=== PATIENT | female | born 1965 | race Caucasian/White ===

== ENCOUNTER → 2017-04-10 | Outpatient (REF) | payer OTHER, SELFPAY ==
[~2017-04-10] MED LIST: ALDACTONE PO; FURO20TA PO; IBUP800T OR; KLOR-CON PO; LEVOTHYROXINE PO; VICO5TAB OR
[2017-04-10 20:54] LABS: ANION GAP 6 MEQ/L (8-16); BLOOD UREA NITROGEN 12 MG/DL (7-18); CALCIUM LEVEL 9.1 MG/DL (8.5-10.1); CARBON DIOXIDE LEVEL 29 MEQ/L (21-32); CHLORIDE LEVEL 102 MEQ/L (98-107); CREATININE FOR GFR 1.02 MG/DL (0.55-1.02); GLOMERULAR FILTRATION RATE > 60.0 (>51); GLUCOSE, FASTING 74 MG/DL (70-105); POTASSIUM SERUM 4.4 MEQ/L (3.5-5.1); SODIUM LEVEL 137 MEQ/L (136-145)
== END ==
LOC: M SFHCLERA 16:42
PROVIDERS: ATTEND Physician Assistant
DX: E87.6 Hypokalemia (principal); E89.0 Postprocedural hypothyroidism

== ENCOUNTER → 2019-02-11 | Outpatient (CLI) | payer OTHER ==
--- NOTE | 2019-02-11 19:47 | REP ---
Clinical: Cough and wheezing . Comparison: 05/01/2008 . Technique: PA and lateral. Findings: The mediastinum and cardiac silhouette are normal. The lung alcantara demonstrate chronic interstitial changes and evidence for COPD without acute consolidation, effusion, or pneumothorax. The skeletal structures are intact and normal. Impression: 1. No acute cardiopulmonary process. Electronically Signed by Cain Babin MD 02/11/2019 07:39 P
== END ==
LOC: M LRY 19:24
PROVIDERS: ATTEND Physician Assistant
DX: R05 Cough (principal); R06.2 Wheezing

== ENCOUNTER → 2019-02-12 | Outpatient (CLI) | payer OTHER ==
[2019-02-12 16:39] LABS: BASO # 0.1 10^3/uL (0.0-0.2); BASO % 1.1 % (0.0-1.0); EOS # 0.2 10^3/uL (0.0-0.50); EOS % 2.7 % (0.0-3.0); HEMATOCRIT 42.3 % (36.0-47.0); HEMOGLOBIN 14.6 g/dl (12.0-15.5); LYMPH # 1.9 10^3/uL (1.5-4.5); LYMPH % 23.9 % (24.0-44.0); MEAN CORPUSCULAR HEMOGLOBIN 29.4 pg (27.0-33.0); MEAN CORPUSCULAR HGB CONC 34.5 g/dl (32.0-36.5); MEAN CORPUSCULAR VOLUME 85.1 fl (80.0-96.0); MONO # 0.7 10^3/uL (0.0-0.8); PLATELET COUNT, AUTOMATED 312 10^3/uL (150-450); RED BLOOD COUNT 4.97 10^6/uL (4.00-5.40); WHITE BLOOD COUNT 7.9 10^3/uL (4.0-10.0)
[2019-02-12 16:56] LABS: ALBUMIN 4.1 GM/DL (3.2-5.2); ALT/SGPT 27 U/L (12-78); BILIRUBIN,TOTAL 0.6 MG/DL (0.2-1.0); BLOOD UREA NITROGEN 13 MG/DL (7-18); CALCIUM LEVEL 9.7 MG/DL (8.5-10.1); CARBON DIOXIDE LEVEL 32 MEQ/L (21-32); CHLORIDE LEVEL 94 MEQ/L (98-107); CHOLESTEROL LEVEL 244 MG/DL (<200); CHOLESTEROL RISK RATIO 2.804 (<5); CREATININE FOR GFR 0.77 MG/DL (0.55-1.30); FREE T4 1.45 NG/DL (0.76-1.46); GLOMERULAR FILTRATION RATE > 60.0 (>51); GLUCOSE, FASTING 76 MG/DL (70-100); HDL CHOLESTEROL 87 MG/DL (>40); LDL CHOLESTEROL 143 MG/DL (<100); NON-HDL-C 157 MG/DL; POTASSIUM SERUM 3.1 MEQ/L (3.5-5.1); SODIUM LEVEL 136 MEQ/L (136-145); TRIGLYCERIDES LEVEL 71 MG/DL (<150)
[2019-02-12 17:00] LABS: TOTAL 25(OH) VITAMIN D 33.7 NG/ML (30.0-100.0)
== END ==
LOC: M WUC 15:22
PROVIDERS: ATTEND Physician Assistant
DX: Z13.21 Encounter for screening for nutritional disorder (principal); E87.6 Hypokalemia; E89.0 Postprocedural hypothyroidism; E78.5 Hyperlipidemia, unspecified; Z86.2 Personal history of diseases of the blood and blood-forming organs and certain disorders involving the immune mechanism

== ENCOUNTER → 2019-09-07 | Outpatient (CLI) | payer OTHER ==
[2019-09-07 20:17] LABS: BASO # 0.1 10^3/uL (0.0-0.2); BASO % 1.8 % (0.0-1.0); EOS # 0.1 10^3/uL (0.0-0.5); EOS % 1.6 % (0.0-3.0); HEMATOCRIT 39.6 % (36.0-47.0); HEMOGLOBIN 13.5 g/dl (12.0-15.5); LYMPH # 1.6 10^3/uL (1.5-5.0); LYMPH % 29.8 % (24.0-44.0); MEAN CORPUSCULAR HEMOGLOBIN 29.8 pg (27.0-33.0); MEAN CORPUSCULAR HGB CONC 34.1 g/dl (32.0-36.5); MEAN CORPUSCULAR VOLUME 87.4 fl (80.0-96.0); MONO # 0.6 10^3/uL (0.0-0.8); MONO % 11.5 % (0.0-5.0); NEUTROPHILS % 55.1 % (36.0-66.0); PLATELET COUNT, AUTOMATED 323 10^3/uL (150-450); RED BLOOD COUNT 4.53 10^6/uL (4.00-5.40); WHITE BLOOD COUNT 5.5 10^3/uL (4.0-10.0)
[2019-09-07 21:50] LABS: ALBUMIN 3.8 GM/DL (3.2-5.2); ALT/SGPT 22 U/L (12-78); BILIRUBIN,TOTAL 0.6 MG/DL (0.2-1.0); BLOOD UREA NITROGEN 11 MG/DL (7-18); CALCIUM LEVEL 10.1 MG/DL (8.5-10.1); CARBON DIOXIDE LEVEL 35 MEQ/L (21-32); CHLORIDE LEVEL 92 MEQ/L (98-107); CHOLESTEROL LEVEL 224 MG/DL (<200); CHOLESTEROL RISK RATIO 2.357 (<5); CREATININE FOR GFR 0.63 MG/DL (0.55-1.30); FREE T4 1.62 NG/DL (0.76-1.46); GLOMERULAR FILTRATION RATE > 60.0 (>51); GLUCOSE, FASTING 63 MG/DL (70-100); HDL CHOLESTEROL 95 MG/DL (>40); LDL CHOLESTEROL 117 MG/DL (<100); NON-HDL-C 129 MG/DL; POTASSIUM SERUM 2.8 MEQ/L (3.5-5.1); SODIUM LEVEL 136 MEQ/L (136-145); TOTAL PROTEIN 6.7 GM/DL (6.4-8.2); TRIGLYCERIDES LEVEL 62 MG/DL (<150)
== END ==
LOC: M WUC 16:50
PROVIDERS: ATTEND Physician Assistant
DX: E78.2 Mixed hyperlipidemia (principal); E89.0 Postprocedural hypothyroidism

== ENCOUNTER → 2019-12-10 | Outpatient (CLI) | payer OTHER ==
[2019-12-10 17:49] LABS: BLOOD UREA NITROGEN 9 MG/DL (7-18); CALCIUM LEVEL 8.9 MG/DL (8.5-10.1); CARBON DIOXIDE LEVEL 28 MEQ/L (21-32); CHLORIDE LEVEL 99 MEQ/L (98-107); CREATININE FOR GFR 0.72 MG/DL (0.55-1.30); GLOMERULAR FILTRATION RATE > 60.0 (>51); GLUCOSE, FASTING 67 MG/DL (70-100); POTASSIUM SERUM 3.5 MEQ/L (3.5-5.1); SODIUM LEVEL 136 MEQ/L (136-145)
== END ==
LOC: M WUC 15:03
PROVIDERS: ATTEND Internal Medicine Cardiovascular Disease
DX: E87.6 Hypokalemia (principal)

== ENCOUNTER 2020-05-20 13:36 | Inpatient (IN) | payer OTHER, SELFPAY ==
[~2020-05-20] VITALS: Ht 162.6 cm; Wt 58.5 kg
[2020-05-20] MEDS ORDERED: TRIA37.53 PO (13:55)
[2020-05-20] MEDS ORDERED: FURO20TA2 PO (13:55)
[2020-05-20 14:11] LABS: BASO # 0.1 10^3/uL (0.0-0.2); BASO % 1.1 % (0.0-1.0); EOS % 0.4 % (0.0-3.0); HEMATOCRIT 40.5 % (36.0-47.0); HEMOGLOBIN 14.4 g/dl (12.0-15.5); LYMPH # 0.8 10^3/uL (1.5-5.0); LYMPH % 8.6 % (24.0-44.0); MEAN CORPUSCULAR HEMOGLOBIN 29.4 pg (27.0-33.0); MEAN CORPUSCULAR HGB CONC 35.6 g/dl (32.0-36.5); MEAN CORPUSCULAR VOLUME 82.8 fl (80.0-96.0); MONO # 0.6 10^3/uL (0.0-0.8); MONO % 6.3 % (0.0-5.0); NEUTROPHILS # 7.5 10^3/uL (1.5-8.5); NEUTROPHILS % 83.2 % (36.0-66.0); PLATELET COUNT, AUTOMATED 251 10^3/uL (150-450); RED BLOOD COUNT 4.89 10^6/uL (4.00-5.40); WHITE BLOOD COUNT 9.1 10^3/uL (4.0-10.0)
--- NOTE | 2020-05-20 14:24 | REP ---
Clinical: Altered mental status . Comparison: 02/11/2019 . Findings: The mediastinum and cardiac silhouette are stable and within normal limits for portable technique. The lung alcantara are clear without acute consolidation, effusion, or pneumothorax. Skeletal structures are intact. Impression: No acute cardiopulmonary process appreciated. Electronically Signed by Cain Babin MD 05/20/2020 02:15 P
[2020-05-20] MEDS ORDERED: KCL 10MEQ/100ML SWI (KRUN) 10 MEQ in IV 1 EA IV ONE (15:15)
[2020-05-20 15:24] LABS: ALBUMIN 3.9 GM/DL (3.2-5.2); ALT/SGPT 21 U/L (12-78); BILIRUBIN,DIRECT 0.2 MG/DL (0.0-0.2); BILIRUBIN,TOTAL 0.7 MG/DL (0.2-1.0); BLOOD UREA NITROGEN 14 MG/DL (7-18); CALCIUM LEVEL 8.7 MG/DL (8.5-10.1); CARBON DIOXIDE LEVEL 30 MEQ/L (21-32); CHLORIDE LEVEL 87 MEQ/L (98-107); CPK CREATINE PHOSPHOKINASE 122 U/L (26-192); CREATININE FOR GFR 0.91 MG/DL (0.55-1.30); ETHYL ALCOHOL (ETHANOL) < 0.003 % (0.000-0.010); GLOMERULAR FILTRATION RATE > 60.0 (>51); GLUCOSE, FASTING 107 MG/DL (70-100); MAGNESIUM LEVEL 1.8 MG/DL (1.8-2.4); MB/CK RELATIVE INDEX 1.64 (< OR =4); POTASSIUM SERUM 1.7 MEQ/L (3.5-5.1); SODIUM LEVEL 129 MEQ/L (136-145); TOTAL PROTEIN 6.9 GM/DL (6.4-8.2); TROPONIN I < 0.02 NG/ML (< 0.10)
[2020-05-20] MEDS: KCL 10MEQ/100ML SWI (KRUN) 10 MEQ in IV 1 EA IV SCH ×4 (15:32→19:13)
[2020-05-20] MEDS ORDERED: LEVO75TA34 PO (15:35)
[2020-05-20] MEDS ORDERED: POTASSIUM CHLORIDE 10 MEQ SR TABLET PO ONE ×2 (15:45→23:00)
[2020-05-20 16:12] LABS: AMPHETAMINES LEVEL URINE NEGATIVE (NEGATIVE); BARBITURATES URINE NEGATIVE (NEGATIVE); BENZODIAZEPINES URINE NEGATIVE (NEGATIVE); CANNABINOIDS URINE NEGATIVE (NEGATIVE); COCAINE METABOLITE URINE NEGATIVE (NEGATIVE); METHADONE URINE NEGATIVE (NEGATIVE); OPIATES URINE NEGATIVE (NEGATIVE); PHENCYCLIDINE URINE NEGATIVE (NEGATIVE)
--- NOTE | 2020-05-20 16:49 | ECGEPIP ---
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
[2020-05-20 18:18] LABS: CALCIUM,RANDOM URINE 6.1 MG/DL; CREATININE,RANDOM URINE 26.7 MG/DL; POTASSIUM RANDOM URINE 30.6 MEQ/L
[2020-05-20 18:20] VITALS: BP 124/74
--- NOTE | 2020-05-20 18:33 | HPEPDOC ---
General Date of Admission May 20, 2020 at 16:05 Date of Service: May 20, 2020 Chief Complaint The patient is a 54-year-old female admitted with a reason for visit of Hypokalemia. Source: Patient History of Present Illness 54 year old female with h/o recurrent severe hypokalemia, reported history of hyperfunctional adrenal diagnosed at [facility] several years ago, fluid retention, secondary hyperthyroidism after total thyroidectomy was out in [place] in a boat when she suddenly started feeling prickling sensation with tingling all over the body starting from the shoulders and arms then going down her body with extreme weakness then involving her throat and face. Associated with severe cramping of her fingers she could not straighten her fingers, her eyes were cl osing and the eye lids were spasming and she felt her throat was closing up and she could not take deep breaths then she started throwing up and had 4 episode of vomiting. [place] and called 911. In the ED she was found to have profound hypokalemia with EKG changes. 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 Surgical History c/s x 2 total hysterectomy total thyroidectomy Family History Significant Family History: Other (Brother with IgA nephropathy) Social History * Smoker: current smoker Alcohol: occationally Drugs: denies A-FIB/CHADSVASC A-FIB History Current/History of A-Fib/PAF?: No Review of Systems Constitutional: Denies: Chills, Fever, Night Sweats Eyes: Denies: Pain, Vision change ENT: Denies: Head Aches, Ear Pain, Dysphagia Skin: Reports: Other (prickling sensation of the skin); Denies: Rash, Lesions, Breakdown Pulmonary: Denies: Dyspnea, Cough Cardiovascular: Denies: Chest Pain, Palpitations, Orthopnea, Paroxysmal Noc. Dyspnea, Lt Headedness Gastrointestinal: Reports: Vomiting Genitourinary: Denies: Dysuria, Frequency, Incontinence, Retention Musculoskeletal: Reports: Shoulder Pain, Hand Pain, Muscle Pain, Spasms Neurological: Reports: Numbness Psych: Reports: Mood Normal; Denies: Depression, Memory Issues Physical Examination General Exam: Positive: Alert, Cooperative, No Acute Distress Eye Exam: Positive: PERRLA, Conjunctiva & lids normal, EOMI; Negative: Sclera icteric ENT Exam: Positive: Atraumatic, Mucous membr. moist/pink, Pharynx Normal Neck Exam: Positive: Supple; Negative: JVD, thyromegaly Chest Exam: Positive: Clear to auscultation, Normal air movement Heart Exam: Positive: Bradycardic, Regular Rhythm, Normal S1, Normal S2; Negative: Murmurs, Rubs Telemetry: Positive: No significant arrhythmia Abdomen Exam: Positive: Normal bowel sounds, Soft; Negative: Tenderness, Hepatospenomegaly Extremity Exam: Positive: Normal pulses; Negative: Clubbing, Cyanosis, Edema Skin Exam: Positive: Nl turgor and temperature; Negative: Breakdown, Lesion Neuro Exam: Positive: Normal Speech, Strength at 5/5 X4 ext, Normal Tone Vital Signs Vital Signs Date Time Temp Pulse Resp B/P (MAP) Pulse Ox O2 Delivery O2 Flow Rate FiO2 05/20/20 17:45 55 17 127/77 (94) 100 Room Air 05/20/20 15:36 98.0 Laboratory Data Labs 24H Laboratory Tests 2 05/20/20 14:05: Whole Blood Ionized Calcium 3.8L 05/20/20 14:06: Immature Granulocyte % (Auto) 0.4, Neutrophils (%) (Auto) 83.2H, Lymphocytes (%) (Auto) 8.6L, Monocytes (%) (Auto) 6.3H, Eosinophils (%) (Auto) 0.4, Basophils (%) (Auto) 1.1H, Neutrophils # (Auto) 7.5, Lymphocytes # (Auto) 0.8L, Monocytes # (Auto) 0.6, Eosinophils # (Auto) 0.0, Basophils # (Auto) 0.1, Nucleated Red Blood Cells % (auto) 0.0, Anion Gap 12, Glomerular Filtration Rate > 60.0, Calcium Level 8.7, Phosphorus Level 2.0L, Magnesium Level 1.8, Total Bilirubin 0.7, Direct Bilirubin 0.2, Aspartate Amino Transf (AST/SGOT) 23, Alanine Aminotransferase (ALT/SGPT) 21, Alkaline Phosphatase 53, Total Creatine Kinase 122, Creatine Kinase MB 2.0, Creatine Kinase MB Relative Index 1.64, Troponin I < 0.02, Total Protein 6.9, Albumin 3.9, Albumin/Globulin Ratio 1.3, Thyroid Stimulating Hormone (TSH) 14.100H, Ethyl Alcohol Level < 0.003 05/20/20 15:33: Urine Color STRAW, Urine Appearance CLEAR, Urine pH 8.0, Urine Specific [place] 1.005, Urine Protein NEGATIVE, Urine Glucose (UA) NEGATIVE, Urine Ketones 1+H, Urine Blood 1+H, Urine Nitrite NEGATIVE, Urine Bilirubin NEGATIVE, Urine Urobilinogen 0.2, Urine Leukocyte Esterase NEGATIVE, Urine WBC (Auto) 1, Urine RBC (Auto) 2, Urine Hyaline Casts (Auto) 0, Urine Bacteria (Auto) NEGATIVE, Urine Squamous Epithelial Cells 0, Urine Amorphous Sediment SMALLH, Urine Sperm (Auto) , Urine Opiates Screen NEGATIVE, Urine Methadone Screen NEGATIVE, Urine Barbiturates Screen NEGATIVE, Urine Phencyclidine Screen NEGATIVE, Urine Amphetamines Screen NEGATIVE, Urine Benzodiazepines Screen NEGATIVE, Urine Cocaine Metabolite Screen NEGATIVE, Urine Cannabinoids Screen NEGATIVE CBC/BMP Laboratory Tests 05/20/20 14:06 Assessment/Plan 54 year old female with h/o recurrent severe hypokalemia, reported history of hyperfunctional adrenal diagnosed at [place] several years ago, fluid retention, secondary hyperthyroidism after total thyroidectomy presented to the ED for ti ngling , numbness, muscle cramps and severe weakness. In the ED she was found to have profound hypokalemia with EKG changes. Hypokalemia K 1.7 EKG with prolonged qtc. potassium being replaced po and iv icu admission basic every 4 hours till k above 2.5 then every 6 hours. magnesium on admission ok. Will recheck. Hyponatremia possibly due to the diuretics. all diuretics held Reported history of fluid retention and hyperfunction of adrenals ? hyperaldosteronism She is on lasix triamterene and thiazide for fluid retention. will hold all diuretics for now. Hypothyroidism due to total thyroidectomy TSH mildly elevated will continue Synthroid at current dosage. Plan / VTE VTE Prophylaxis Ordered?: Yes YOHAN DELUCA MD May 20, 2020 18:33
[2020-05-20] MEDS: ENOXAPARIN 40MG/0.4ML SYRINGE (J1650 PER 10MG) SC SCH (18:45)
[2020-05-20 18:50] LABS: BLOOD UREA NITROGEN 12 MG/DL (7-18); CALCIUM LEVEL 8.5 MG/DL (8.5-10.1); CARBON DIOXIDE LEVEL 33 MEQ/L (21-32); CHLORIDE LEVEL 87 MEQ/L (98-107); CREATININE FOR GFR 0.69 MG/DL (0.55-1.30); GLOMERULAR FILTRATION RATE > 60.0 (>51); GLUCOSE, FASTING 80 MG/DL (70-100); POTASSIUM SERUM 2.8 MEQ/L (3.5-5.1); SODIUM LEVEL 130 MEQ/L (136-145)
[2020-05-20 20:03] VITALS: BP 98/59
[2020-05-20] MEDS: POTASSIUM CHLORIDE 10 MEQ SR TABLET PO SCH (20:05)
[2020-05-20] MEDS ORDERED: SPIRONOLACTONE 25 MG TAB PO ONE (21:30)
[2020-05-20 22:37] LABS: BLOOD UREA NITROGEN 12 MG/DL (7-18); CALCIUM LEVEL 8.2 MG/DL (8.5-10.1); CARBON DIOXIDE LEVEL 34 MEQ/L (21-32); CHLORIDE LEVEL 92 MEQ/L (98-107); CREATININE FOR GFR 0.74 MG/DL (0.55-1.30); GLOMERULAR FILTRATION RATE > 60.0 (>51); GLUCOSE, FASTING 85 MG/DL (70-100); POTASSIUM SERUM 2.6 MEQ/L (3.5-5.1); SODIUM LEVEL 129 MEQ/L (136-145)
[2020-05-21] VITALS (7 sets, daily range): BP systolic 87–107; BP diastolic 51–67
[2020-05-21 02:39] LABS: BLOOD UREA NITROGEN 10 MG/DL (7-18); CALCIUM LEVEL 8.4 MG/DL (8.5-10.1); CARBON DIOXIDE LEVEL 32 MEQ/L (21-32); CHLORIDE LEVEL 95 MEQ/L (98-107); CREATININE FOR GFR 0.62 MG/DL (0.55-1.30); GLOMERULAR FILTRATION RATE > 60.0 (>51); GLUCOSE, FASTING 79 MG/DL (70-100); POTASSIUM SERUM 2.6 MEQ/L (3.5-5.1); SODIUM LEVEL 135 MEQ/L (136-145)
[2020-05-21] MEDS: KCL 10MEQ/100ML SWI (KRUN) 10 MEQ in IV 1 EA IV SCH ×3 (03:31→06:13)
[2020-05-21] MEDS: LEVOTHYROXINE 100MCG TABLET (0.1MG) PO SCH (05:56)
[2020-05-21 08:03] LABS: BLOOD UREA NITROGEN 9 MG/DL (7-18); CALCIUM LEVEL 8.3 MG/DL (8.5-10.1); CARBON DIOXIDE LEVEL 33 MEQ/L (21-32); CHLORIDE LEVEL 101 MEQ/L (98-107); CREATININE FOR GFR 0.61 MG/DL (0.55-1.30); GLOMERULAR FILTRATION RATE > 60.0 (>51); GLUCOSE, FASTING 80 MG/DL (70-100); MAGNESIUM LEVEL 2.2 MG/DL (1.8-2.4); POTASSIUM SERUM 3.5 MEQ/L (3.5-5.1); SODIUM LEVEL 138 MEQ/L (136-145)
[2020-05-21] MEDS: ENOXAPARIN 40MG/0.4ML SYRINGE (J1650 PER 10MG) SC SCH (08:04)
[2020-05-21] MEDS: POTASSIUM CHLORIDE 10 MEQ SR TABLET PO SCH (08:05)
--- NOTE | 2020-05-21 10:56 | IPNPDOC ---
Subjective Date Seen The patient was seen on 05/21/20. Subjective Chief Complaint/HPI All presenting symptoms of paraesthesias and cramps and muscle weakness has resolved. started on spironolactone. Wants to go home . i explained we will have to make sure that her potassium is stable before her can be discharged. She is not stable to be able to go home today. Objective Physical Examination General Exam: Positive: Alert, Cooperative, No Acute Distress Eye Exam: Positive: PERRLA, Conjunctiva & lids normal, EOMI; Negative: Sclera icteric ENT Exam: Positive: Atraumatic, Mucous membr. moist/pink, Pharynx Normal Neck Exam: Positive: Supple; Negative: JVD, thyromegaly Chest Exam: Positive: Clear to auscultation, Normal air movement Heart Exam: Positive: Bradycardic, Regular Rhythm, Normal S1, Normal S2; Negative: Murmurs, Rubs Telemetry: Positive: No significant arrhythmia Abdomen Exam: Positive: Normal bowel sounds, Soft; Negative: Tenderness, Hepatospenomegaly Extremity Exam: Positive: Normal pulses; Negative: Clubbing, Cyanosis, Edema Skin Exam: Positive: Nl turgor and temperature; Negative: Breakdown, Lesion Neuro Exam: Positive: Normal Speech, Strength at 5/5 X4 ext, Normal Tone Assessment /Plan Assessment 54 year old female with h/o recurrent severe hypokalemia, reported history of hyperfunctional adrenal diagnosed at [place] several years ago, fluid retention, secondary hyperthyroidism after total thyroidectomy presented to the ED for tingling , numbness, muscle cramps and severe weakness. In the ED she was found to have profound hypokalemia with EKG changes. Hypokalemia K 1.7 Now up to 3.4 EKG with prolonged qtc. potassium being replaced po now bmp q 6 hours. magnesium on admission ok. Will recheck. nephrology consult Hyponatremia possibly due to the diuretics. only on spironolactone Reported history of fluid retention and hyperfunction of adrenals ? hyperaldosteronism She is on lasix triamterene and thiazide for fluid retention. started on spironolactone Hypothyroidism due to total thyroidectomy TSH mildly elevated will continue Synthroid with increased dosage to 100 Plan/VTE VTE Prophylaxis Ordered?: Yes VS, I&O, 24H, Fishbone Vital Signs/I&O Vital Signs Date Time Temp Pulse Resp B/P (MAP) Pulse Ox O2 Delivery O2 Flow Rate FiO2 05/21/20 04:06 96.7 50 18 96/52 (67) 100 Room Air I&O- Last 24 Hours up to 6 AM 05/21/20 07:00 Intake Total 967 ml Output Total 1300 ml Balance -333 ml Laboratory Data 24H LABS Laboratory Tests 2 05/20/20 14:05: Whole Blood Ionized Calcium 3.8L 05/20/20 14:06: Immature Granulocyte % (Auto) 0.4, Neutrophils (%) (Auto) 83.2H, Lymphocytes (%) (Auto) 8.6L, Monocytes (%) (Auto) 6.3H, Eosinophils (%) (Auto) 0.4, Basophils (%) (Auto) 1.1H, Neutrophils # (Auto) 7.5, Lymphocytes # (Auto) 0.8L, Monocytes # (Auto) 0.6, Eosinophils # (Auto) 0.0, Basophils # (Auto) 0.1, Nucleated Red Blood Cells % (auto) 0.0, Anion Gap 12, Glomerular Filtration Rate > 60.0, Calcium Level 8.7, Phosphorus Level 2.0L, Magnesium Level 1.8, Total Bilirubin 0.7, Direct Bilirubin 0.2, Aspartate Amino Transf (AST/SGOT) 23, Alanine Aminotransferase (ALT/SGPT) 21, Alkaline Phosphatase 53, Total Creatine Kinase 122, Creatine Kinase MB 2.0, Creatine Kinase MB Relative Index 1.64, Troponin I < 0.02, Total Protein 6.9, Albumin 3.9, Albumin/Globulin Ratio 1.3, Thyroid Stimulating Hormone (TSH) 14.100H, Ethyl Alcohol Level < 0.003 05/20/20 15:33: Urine Color STRAW, Urine Appearance CLEAR, Urine pH 8.0, Urine Specific [place] 1.005, Urine Protein NEGATIVE, Urine Glucose (UA) NEGATIVE, Urine Ketones 1+H, Urine Blood 1+H, Urine Nitrite NEGATIVE, Urine Bilirubin NEGATIVE, Urine Urobilinogen 0.2, Urine Leukocyte Esterase NEGATIVE, Urine WBC (Auto) 1, Urine RBC (Auto) 2, Urine Hyaline Casts (Auto) 0, Urine Bacteria (Auto) NEGATIVE, Uri ne Squamous Epithelial Cells 0, Urine Amorphous Sediment SMALLH, Urine Sperm (Auto) , Urine Random Creatinine 26.7, Urine Random Potassium 30.6, Urine Random Chloride 82, Urine Random Calcium 6.1, Urine Opiates Screen NEGATIVE, Urine Methadone Screen NEGATIVE, Urine Barbiturates Screen NEGATIVE, Urine Phencyclidine Screen NEGATIVE, Urine Amphetamines Screen NEGATIVE, Urine Benzodiazepines Screen NEGATIVE, Urine Cocaine Metabolite Screen NEGATIVE, Urine Cannabinoids Screen NEGATIVE 05/20/20 17:55: Anion Gap 10, Glomerular Filtration Rate > 60.0, Calcium Level 8.5, Magnesium Level 2.0 05/20/20 20:09: Urine Random Total Protein 10.9 05/20/20 21:57: Anion Gap 3L, Glomerular Filtration Rate > 60.0, Calcium Level 8.2L 05/21/20 01:56: Anion Gap 8, Glomerular Filtration Rate > 60.0, Calcium Level 8.4L CBC/BMP Laboratory Tests 05/20/20 14:06 05/20/20 17:55 05/20/20 21:57 05/21/20 01:56 YOHAN DELUCA MD May 21, 2020 06:10
[2020-05-21] MEDS ORDERED: NICOTINE 21MG/24HR 1 EA TRANSDERMAL TD PRN (11:15)
[2020-05-21 13:26] LABS: BLOOD UREA NITROGEN 10 MG/DL (7-18); CALCIUM LEVEL 8.6 MG/DL (8.5-10.1); CARBON DIOXIDE LEVEL 30 MEQ/L (21-32); CHLORIDE LEVEL 101 MEQ/L (98-107); CREATININE FOR GFR 0.76 MG/DL (0.55-1.30); GLOMERULAR FILTRATION RATE > 60.0 (>51); GLUCOSE, FASTING 83 MG/DL (70-100); SODIUM LEVEL 137 MEQ/L (136-145)
[2020-05-21 19:50] LABS: BLOOD UREA NITROGEN 12 MG/DL (7-18); CALCIUM LEVEL 8.6 MG/DL (8.5-10.1); CARBON DIOXIDE LEVEL 30 MEQ/L (21-32); CHLORIDE LEVEL 102 MEQ/L (98-107); CREATININE FOR GFR 0.67 MG/DL (0.55-1.30); GLOMERULAR FILTRATION RATE > 60.0 (>51); GLUCOSE, FASTING 84 MG/DL (70-100); POTASSIUM SERUM 3.8 MEQ/L (3.5-5.1); SODIUM LEVEL 139 MEQ/L (136-145)
[2020-05-21] MEDS: SPIRONOLACTONE 25 MG TAB PO SCH ×2 (19:55→20:51)
[2020-05-21] MEDS ORDERED: POTASSIUM CHLORIDE 10 MEQ SR TABLET PO SCH (21:00)
--- NOTE | 2020-05-21 23:05 | CR ---
DATE OF CONSULTATION: 05/21/2020 REQUESTING PHYSICIAN: Dr. Lilli Wilson CONSULTING PHYSICIAN: Dr. Yobani Goodrich REASON FOR CONSULTATION: Severe symptomatic hyponatremia. CHIEF COMPLAINT: The patient presented to the emergency room yesterday with generalized weakness. HISTORY OF PRESENT ILLNESS: Sherin Raymundo is a 54-year-old female with past medical history of hypokalemia in the past. She reportedly has followed up with nephrology service sometime in the past in [place]. She takes a combination of triamterene, hydrochlorothiazide and furosemide as outpatient. She has not followed up with a physician in more than 6 months. She also has history of iatrogenic hypothyroidism and takes levothyroxine and her TSH has not been checked since the beginning of this year almost. Because of hypothyroidism, surgical removal of thyroid because of history of papillary cancer of thyroid. She reports history of hyperfunctioning adrenal gland which was diagnosed at [facility] many years ago and she reports fluid retention because of that and the patient also reports that spironolactone does not work for her and she gets edema so that is why she is taking the current combination of Lasix, triamterene, and hydrochlorothiazide. She was at [place] in a boat yesterday when she started having of pins and needles sensation in the upper extremity, along with extreme weakness in the upper extremity, along with her face and eyes, and she started having cramping of the bilateral upper extremities with cramping of the fingers. She also had four episodes of vomiting as well. EMS was called and the patient was brought to the emergency room. On further evaluation in the emergency room the patient was found to have severe hypokalemia with a potassium of 1.7. The patient was admitted under the hospitalist service yesterday to ICU. Admitting physician Dr. Lilli Hook discussed the case with myself yesterday. Decision was made to aggressively replete the potassium. BMP every 4 hour was done. I was called for each BMP result overnight. Orders were done according to the labs each time. The patient was also given a dose of spironolactone last night. Home dose of diuretics were stopped. I saw and evaluated the patient today morning at the bedside in the ICU. She reports that she is feeling much better today as compared with yesterday. Her potassium level has improved from 1.7 to 3.5 today morning. She is no longer nauseated and she denies any muscle weakness at this time. PAST MEDICAL HISTORY: Past medical history of hyperfunctioning adrenal gland as reported by the patient, however she is not following up with any boat patcher plastic at this time. History of fluid retention so she takes a combination of three different diuretics including triamterene, hydrochlorothiazide and spironolactone. Iatrogenic hypothyroidism status post total thyroidectomy in 1994 because of papillary cancer of thyroid. History of hypokalemia in the past. The patient reports that this is the third episode. PAST SURGICAL HISTORY: Status post times two, history of total hysterectomy, status post total thyroidectomy in 1994. ALLERGIES: No known drug allergies. FAMILY HISTORY: There is positive history of IgA nephropathy in brother. SOCIAL HISTORY: She is an active smoker. Occasionally drinks alcohol. Denies any drug abuse. REVIEW OF SYSTEMS: Constitutional: She denies any fevers or chills. Eyes: She reported weakness of the eye muscles on arrival however, she denies any active complaints at this time. ENT: She denies any dysphagia, odynophagia, ear discharge. Cardiovascular: She denies any chest pain or palpitation. Respiratory: She denies any shortness of breath. Cardiovascular: She denies any palpitations. GI: She reported nausea and vomiting yesterday when she arrived however, she denies any nausea at this time. Genitourinary: She denies any dysuria or hematuria. Musculoskeletal: She reported muscle weakness on arrival but she denies any weakness at this time. Skin: She denies any rashes or ulcers. Psychiatric: She denies any depression or anxiety. Endocrine: She reports history of hypothyroidism. Hematology/Oncology: She denies any easy bleeding or bruising. All other review of systems is negative. PHYSICAL EXAMINATION: General: The patient is awake, alert, oriented times three, sitting up in the bed in no apparent distress. Vital signs: Temperature is 98.4 degrees Fahrenheit, blood pressure is 92/55, pulse is 60, respiratory rate of 18, saturating 97% on room air. Head and neck exam: Extraocular muscles intact. Pupils equally round and reactive to light. Mucous membranes are moist. Neck is supple. There is no JVD. Cardiovascular: S1, S2, regular rate. No edema of the bilateral lower extremities. Respiratory: Chest is clear to auscultation bilaterally. Bilateral equal air entry. No rales or rhonchi. Abdomen: Soft, positive bowel sounds. Nontender. No organomegaly. Musculoskeletal: No clubbing or cyanosis. Pulses are 2+. 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 Power is 5/5 in all extremities. Skin: No rashes or ulcers. LABORATORY REVIEW: CBC showed WBC 9.1, hemoglobin 14.4, platelets are 251. Urinalysis done on arrival showed 1+ ketone, 1+ blood, urine random creatinine was 26.7, random potassium of 30.6, chloride was 82, calcium was 6.1. BMP done on arrival showed sodium 129, potassium 1.7, chloride 87, bicarbonate 30, BUN 14, creatinine is 0.91, phosphorus was 2, whole blood ionized calcium was 3.8. TSH was 14.1. Urine toxicology was negative. Repeat BMP done today morning showed sodium 138, potassium 3.5, chloride 101, bicarbonate 33, BUN 9, creatinine 0.61, magnesium 2.2. IMAGING STUDIES: Chest x-ray was done yesterday which showed no acute cardiopulmonary process. HOME MEDICATIONS: The patient's home medications include: - levothyroxine 75 mcg by mouth daily - Lasix 20 mg by mouth twice a day - triamterene / hydrochlorothiazide 37.5 / 25 mg capsule one by mouth daily CURRENT INPATIENT MEDICATIONS: The patient's inpatient medications include Lovenox 40 mg subcutaneous daily. have increased her levothyroxine dose to 100 mcg by mouth daily. She has a nicotine patch and she was getting serial potassium repletion which includes oral and IV potassium since yesterday. She was given one dose of spironolactone 25 mg last night and she has been started on spironolactone 25 mg by mouth daily starting tonight. ASSESSMENT: 54-year-old female with questionable past medical history of hyperfunctioning adrenal gland, history of iatrogenic hypothyroidism, admitted at this time with severe symptomatic hypokalemia with associated hyponatremia. PLAN: 1. Severe hypokalemia. Unsure at this time whether it is because of primary hyperaldosteronism or use of diuretic regimen at home, however home dose of diuretics have been stopped. The patient was given spironolactone yesterday. She got serial BMP checks every 4 hours last night and got a potassium repletion oral and IV with each lab check. Potassium has nicely improved to 3.5 today. I have decreased the potassium dose to 40 mEq by mouth daily now. Continue current dose of spironolactone 25 mg by mouth daily. Further adjustment in the dose will be done tomorrow morning. Renin and aldosterone levels are still pending. 2. Hyponatremia. The patient had mild hyponatremia on arrival along with hypokalemia and use of diuretics. Sodium level is automatically improving with improvement of the potassium levels. 3. Hypothyroidism. The patient's TSH is elevated which means her levothyroxine dose is not adequate. She has not seen a physician in more than 6 months. I have increased the levothyroxine dose to 100 mcg by mouth daily. 4. History of edema and fluid retention. The patient reports she does not respond well to spironolactone and that is why she is on a combination of triamterene, hydrochlorothiazide and Lasix. However, because of the electrolyte abnormalities all the home dose of diuretics have been stopped. Renin and aldosterone levels are still pending. She has been started on spironolactone which is the drug of choice for hyperaldosteronism. Depending upon her response to spironolactone, it will be decided by tomorrow if we need to keep her on spironolactone or switch her to triamterene or amiloride. DISPOSITION: The patient is stable to be downgraded to medical/surgical unit with telemonitoring because of electrolyte abnormalities. Total critical care time spent in the management of this patient today morning in the ICU was 1 hour excluding all the procedures,
[2020-05-22] MEDS: LEVOTHYROXINE 100MCG TABLET (0.1MG) PO SCH (05:48)
[2020-05-22 06:00] VITALS: BP 104/60
[2020-05-22 08:54] LABS: BASO # 0.1 10^3/uL (0.0-0.2); BASO % 1.6 % (0.0-1.0); EOS # 0.1 10^3/uL (0.0-0.5); EOS % 2.2 % (0.0-3.0); HEMATOCRIT 39.9 % (36.0-47.0); HEMOGLOBIN 13.7 g/dl (12.0-15.5); LYMPH # 1.6 10^3/uL (1.5-5.0); LYMPH % 29.4 % (24.0-44.0); MEAN CORPUSCULAR HEMOGLOBIN 29.8 pg (27.0-33.0); MEAN CORPUSCULAR HGB CONC 34.3 g/dl (32.0-36.5); MEAN CORPUSCULAR VOLUME 86.9 fl (80.0-96.0); MONO # 0.5 10^3/uL (0.0-0.8); MONO % 8.2 % (0.0-5.0); NEUTROPHILS # 3.3 10^3/uL (1.5-8.5); NEUTROPHILS % 58.4 % (36.0-66.0); PLATELET COUNT, AUTOMATED 268 10^3/uL (150-450); RED BLOOD COUNT 4.59 10^6/uL (4.00-5.40); WHITE BLOOD COUNT 5.6 10^3/uL (4.0-10.0)
[2020-05-22] MEDS: ENOXAPARIN 40MG/0.4ML SYRINGE (J1650 PER 10MG) SC SCH (09:00)
[2020-05-22] MEDS ORDERED: POTASSIUM CHLORIDE 10 MEQ SR TABLET PO SCH (09:00)
[2020-05-22 09:05] LABS: BLOOD UREA NITROGEN 9 MG/DL (7-18); CARBON DIOXIDE LEVEL 30 MEQ/L (21-32); CHLORIDE LEVEL 103 MEQ/L (98-107); CREATININE FOR GFR 0.67 MG/DL (0.55-1.30); GLOMERULAR FILTRATION RATE > 60.0 (>51); GLUCOSE, FASTING 82 MG/DL (70-100); POTASSIUM SERUM 3.6 MEQ/L (3.5-5.1); SODIUM LEVEL 139 MEQ/L (136-145)
[2020-05-22] MEDS ORDERED: K-TA10TA2 PO (10:22)
[2020-05-22] MEDS ORDERED: AMIL5TAB4 PO (10:23)
[2020-05-22] MEDS ORDERED: LEVO100T5 PO (10:29)
[2020-05-22] MEDS ORDERED: aMILoride 5 MG TAB PO ONE (12:00)
--- NOTE | 2020-05-22 14:48 | IPN ---
DATE OF SERVICE: 05/22/2020 SUBJECTIVE: Patient was seen and examined at the bedside today morning. She is afebrile, hemodynamically stable. She reports edema of the lower extremities. Her potassium level is stable since yesterday. OBJECTIVE: Vital Signs: Temperature is 97.9 degrees Fahrenheit, blood pressure 104/60, pulse is 58, respiratory rate of 16, saturating 98% on room air. Intake/Output: Urine output recorded is 1700 mL yesterday. Weight in the bed scale was 58.5 mL yesterday. PHYSICAL EXAMINATION: General: Patient is awake, alert, oriented times three, sitting up in the sofa, in no apparent distress. Head/Neck Exam: Extraocular muscles intact. Pupils equally round and reactive to light. Mucous membranes are moist. Neck is supple. There is no jugular venous distention (JVD). Cardiovascular: S1, S2, regular rate. 1+ edema of the bilateral feet and ankles was noted. Respiratory: Chest is clear to auscultation bilaterally. Bilateral equal air entry. No rales or rhonchi. Abdomen: Soft. Positive bowel sounds. Nontender. No organomegaly. Musculoskeletal: No clubbing or cyanosis. Pulses are 2+. Central Nervous System (BUSINESS OBJECTS ARCHITECT): No focal deficit. Power is 5/5 in all extremities. LAB REVIEW: Complete blood count (CBC) showed WBC 5.6, hemoglobin 13.7, platelets of 268. Basic metabolic panel (BMP) showed sodium 139, potassium 3.6, chloride 103, bicarbonate 30, BUN is 9, creatinine is 0.67. CURRENT INPATIENT MEDICATIONS: The patient's medications were all reviewed by myself. Her spironolactone has been stopped. She has been started on amiloride 5 mg by mouth twice a day. Potassium dose has been changed to 20 mEq by mouth daily. She continues to be on levothyroxine 100 mcg by mouth daily. ASSESSMENT/PLAN: 1. Hypokalemia. Potassium level is stable. She got 40 mEq of potassium yesterday along with spironolactone 25 mg by mouth. Patient reports that usually spironolactone does not work for her and she gets edema and she has tried spironolactone higher doses and she is not comfortable continuing the spironolactone. I have started her on amiloride 5 mg by mouth twice a day along with potassium 20 mEq by mouth daily. Rest of the dosage adjustment will be done as outpatient in the clinic. 2. Edema and fluid retention. The patient has 1+ edema of the ankles and feet. I advised her to avoid taking Lasix at this time. She will continue with amiloride only on discharge and if we need to add another diuretic as outpatient it will be done by the end of this week when she is seen in the clinic. 3. Hypothyroidism. Levothyroxine dose was increased to 100 mcg by mouth daily. She will continue this dose when she is discharged. DISPOSITION: Patient is optimized from nephrology standpoint to be discharged home. She was given the phone number for the clinic and she needs to followup on this 05/26/2020.
[2020-05-22] MEDS ORDERED: aMILoride 5 MG TAB PO SCH (21:00)
--- NOTE | 2020-05-22 23:47 | DS.PDOC ---
Discharge Summary General Date of Admission May 20, 2020 at 16:05 Date of Discharge 05/22/20 Discharge Summary PROCEDURES PERFORMED DURING STAY: [None]. DISCHARGE DIAGNOSES: Hypokalemia hyponatremia SECONDARY DIAGNOSIS: Fluid retention so takes diuretics Reported hyperfunctioning of adrenal Possibly hyperaldosteronism. H/o papillary cancer of thyroid s/p total thyroidectomy in 1994 Hypothyroidism due to above. COMPLICATIONS/CHIEF COMPLAINT: Hypokalemia. 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 In the ED she was found to have profound hypokalemia with EKG changes. Hypokalemia K 1.7 Now up to 3.6 continue potassium 20 meq/ day. Am Cortisol normal. Hyponatremia possibly due to the diuretics. resolved Reported history of fluid retention and hyperfunction of adrenals ? hyperaldosteronism will only give amiloride for now Follow up with Nephrology on 05/26/20 for further adjustment of diuretics. Hypothyroidism due to total thyroidectomy TSH mildly elevated will continue Synthroid with increased dosage to 100 DISCHARGE MEDICATIONS: Please see below. ALLERGIES: Please see below. PHYSICAL EXAMINATION ON DISCHARGE: VITAL SIGNS: Please see below. General Exam: Positive: Alert, Cooperative, No Acute Distress Eye Exam: Positive: PERRLA, Conjunctiva & lids normal, EOMI; Negative: Sclera icteric ENT Exam: Positive: Atraumatic, Mucous membr. moist/pink, Pharynx Normal Neck Exam: Positive: Supple; Negative: JVD, thyromegaly Chest Exam: Positive: Clear to auscultation, Normal air movement Heart Exam: Positive: Bradycardic, Regular Rhythm, Normal S1, Normal S2; Negative: Murmurs, Rubs Telemetry: Positive: No significant arrhythmia Abdomen Exam: Positive: Normal bowel sounds, Soft; Negative: Tenderness, Hepatospenomegaly Extremity Exam: Positive: Normal pulses; Bipedal edema 1+ Negative: Clubbing, Cyanosis Skin Exam: Positive: Nl turgor and temperature; Negative: Breakdown, Lesion Neuro Exam: Positive: Normal Speech, Strength at 5/5 X4 ext, Normal Tone LABORATORY DATA: Please see below. ACTIVITY: [As tolerated]. DIET: As tolerated DISPOSITION: Home, Self-Care. DISCHARGE INSTRUCTIONS: Follow up with Renal on 05/26/20 PMD in 2 weeks Follow up aldosterone and renin levels DISCHARGE CONDITION: [Stable]. TIME SPENT ON DISCHARGE: 35 minutes. Vital Signs/I&Os Vital Signs Date Time Temp Pulse Resp B/P (MAP) Pulse Ox O2 Delivery O2 Flow Rate FiO2 05/22/20 06:00 97.9 58 16 104/60 (75) 98 Room Air I&O- Last 24 Hours up to 6 AM 05/22/20 07:00 Intake Total 1790 ml Output Total 700 ml Balance 1090 ml Laboratory Data Labs 24H Laboratory Tests 2 05/22/20 08:22: Immature Granulocyte % (Auto) 0.2, Neutrophils (%) (Auto) 58.4, Lymphocytes (%) (Auto) 29.4, Monocytes (%) (Auto) 8.2H, Eosinophils (%) (Auto) 2.2, Basophils (%) (Auto) 1.6H, Neutrophils # (Auto) 3.3, Lymphocytes # (Auto) 1.6, Monocytes # (Auto) 0.5, Eosinophils # (Auto) 0.1, Basophils # (Auto) 0.1, Nucleated Red Blood Cells % (auto) 0.0, Anion Gap 6L, Glomerular Filtration Rate > 60.0, Calcium Level 9.0 CBC/BMP Laboratory Tests 05/22/20 08:22 Discharge Medications Scheduled Amiloride HCl (Amiloride HCl) 5 Mg Tablet, 5 MG PO BID Levothyroxine Sodium (Levothyroxine Sodium) 100 Mcg Tablet, 100 MCG PO DAILY@06 Potassium Chloride (K-Tab ER) 10 Meq Tablet.er, 20 MEQ PO DAILY Allergies Coded Allergies: No Known Allergies (Unverified , 05/20/20) YOHAN DELUCA MD May 22, 2020 23:47
== END 2020-05-22 10:57 | disposition home or self-care (01) | DRG 424 ==
LOC: EDBD 13:36 → M ED 13:36 → M ED INP 16:05 → ENRESERV 16:45 → M ICU 18:12 → M MSPAV 05-21 11:32
PROVIDERS: ADMIT Internal Medicine Nephrology; ATTEND Internal Medicine Nephrology
DX: E26.9 Hyperaldosteronism, unspecified (principal); E27.5 Adrenomedullary hyperfunction; E87.6 Hypokalemia; E87.1 Hypo-osmolality and hyponatremia; E89.0 Postprocedural hypothyroidism; Z85.850 Personal history of malignant neoplasm of thyroid; Z79.899 Other long term (current) drug therapy

== ENCOUNTER → 2020-07-13 | Outpatient (REF) | payer SELFPAY ==
[~2020-07-13] MED LIST changes: +AMIL5TAB4 PO; +FURO20TA2 PO; +K-TA10TA2 PO; +LEVO100T5 PO; +LEVO75TA34 PO; +TRIA37.53 PO
[2020-07-13 20:20] LABS: FREE T4 1.48 NG/DL (0.76-1.46); THYROID STIMULATING HORMONE 0.916 uIU/ML (0.358-3.740)
[2020-07-14 17:53] LABS: TOTAL PROTEIN,RANDOM URINE 114.1 MG/DL (0.0-12.0)
== END ==
LOC: M LAB REF 19:06
PROVIDERS: ATTEND Internal Medicine Nephrology
DX: E03.9 Hypothyroidism, unspecified (principal); R80.9 Proteinuria, unspecified

== ENCOUNTER → 2020-07-31 | Outpatient (REF) | payer MEDICAID ==
[2020-07-31 19:00] LABS: COMPLEMENT C3 92 MG/DL (90-180); COMPLEMENT C4 26 MG/DL (10-40); TOTAL PROTEIN 6.8 GM/DL (6.4-8.2)
[2020-07-31 19:11] LABS: HEPATITIS B SURFACE ANTIBODY NEGATIVE (POSITIVE)
[2020-07-31 19:22] LABS: HEPATITIS B SURFACE ANTIGEN NEGATIVE (NEGATIVE)
[2020-07-31 19:50] LABS: HEPATITIS C VIRUS ABY INDEX 0.1 INDEX (<0.8)
[2020-07-31 19:51] LABS: HEPATITIS B CORE ANTIBODY IGM NEGATIVE (NEGATIVE)
[2020-08-01 13:19] LABS: ALBUMIN % 63.2 % (55.8-66.1)
[2020-08-01 13:20] LABS: ALPHA-1-GLOBULIN % 4.5 % (2.9-4.9); ALPHA-1-GLOBULINS 0.31 GM/DL (0.17-0.41); ALPHA-2-GLOBULINS 0.74 GM/DL (0.42-0.99); ALPHA-2-GLOBULINS % 10.9 % (7.1-11.8); BETA-1-GLOBULINS 0.39 GM/DL (0.28-0.60); BETA-1-GLOBULINS % 5.7 % (4.7-7.2); BETA-2-GLOBULINS 0.27 GM/DL (0.19-0.55); BETA-2-GLOBULINS % 3.9 % (3.2-6.5); GAMMA GLOBULIN % 11.8 % (11.1-18.8)
[2020-08-01 13:30] LABS: IMMUNOTYPING SERUM IGG ABNORMAL (NORMAL); IMMUNOTYPING SERUM KAPPA ABNORMAL (NORMAL)
[2020-08-03 15:07] LABS: ANCA-ATYPICAL <1:20 titer (Neg:<1:20); ANTI DS-DNA AB Negative (Negative); ANTINUCLEAR ANTIBODIES DIRECT Negative (Negative); CYTOPLASMIC NEUTROP AB ANCA-C <1:20 titer (Neg:<1:20); FREE KAPPA LIGHT CHAINS SERUM 13.6 mg/L (3.3-19.4); FREE LAMBDA LIGHT CHAINS SERUM 11.7 mg/L (5.7-26.3); KAPPA/LAMBDA RATIO SERUM 1.16 (0.26-1.65); PERINUCLEAR AB ANCA-P <1:20 titer (Neg:<1:20); SJOGREN'S ANTI SS-A <0.2 AI (0.0-0.9); SJOGREN'S ANTI SS-B <0.2 AI (0.0-0.9)
== END ==
LOC: M LAB REF 17:16
PROVIDERS: ATTEND Internal Medicine Nephrology
DX: R80.9 Proteinuria, unspecified (principal); R60.0 Localized edema; N18.2 Chronic kidney disease, stage 2 (mild)

== ENCOUNTER → 2021-04-23 | Outpatient (REF) | payer OTHER ==
[2021-04-23 19:47] LABS: ALBUMIN 4.3 GM/DL (3.2-5.2); ALT/SGPT 25 U/L (12-78); BILIRUBIN,TOTAL 0.5 MG/DL (0.2-1.0); BLOOD UREA NITROGEN 10 MG/DL (7-18); CALCIUM LEVEL 9.3 MG/DL (8.5-10.1); CARBON DIOXIDE LEVEL 28 MEQ/L (21-32); CHLORIDE LEVEL 104 MEQ/L (98-107); CHOLESTEROL LEVEL 240 MG/DL (<200); CREATININE FOR GFR 0.78 MG/DL (0.55-1.30); FREE T4 1.49 NG/DL (0.76-1.46); GLOMERULAR FILTRATION RATE > 60.0 (>51); GLUCOSE, FASTING 72 MG/DL (70-100); HDL CHOLESTEROL 75 MG/DL (>40); LDL CHOLESTEROL 146 MG/DL (<100); MAGNESIUM LEVEL 2.2 MG/DL (1.8-2.4); NON-HDL-C 165 MG/DL; POTASSIUM SERUM 3.9 MEQ/L (3.5-5.1); SODIUM LEVEL 139 MEQ/L (136-145); THYROID STIMULATING HORMONE 0.931 uIU/ML (0.358-3.740); TOTAL PROTEIN 7.3 GM/DL (6.4-8.2); TRIGLYCERIDES LEVEL 93 MG/DL (<150)
[2021-04-23 20:15] LABS: HEMOGLOBIN A1c 5.2 %
== END ==
LOC: M SFHCPLAZ 15:49
PROVIDERS: ATTEND Nurse Practitioner Family
DX: E78.2 Mixed hyperlipidemia (principal); E03.9 Hypothyroidism, unspecified; E83.42 Hypomagnesemia

== ENCOUNTER → 2021-05-10 | Outpatient (CLI) | payer OTHER ==
--- NOTE | 2021-05-10 13:12 | REPMRS ---
Patient History The patient states she has not had a clinical breast exam in over a year. Patient is postmenopausal, has history of other cancer at age 29, and had first child at age 35. Family history of breast cancer at age 67 in mother. Patient states no breast complaints today. Patient has signed MRS History Sheet. Digital Woman Screen Mammo: May 10, 2021 - Exam #: [id number] Bilateral CC and MLO view(s) were taken. Technologist: Angela Duncan, Technologist Prior study comparison: September 18, 2010, bilateral digital mammo screening bilat, performed at [facility]. FINDINGS: The breast tissue is heterogeneously dense. This may lower the sensitivity of mammography. [facility]. There is a moderate amount of heterogeneously dense fibroglandular tissue which is fairly symmetric. There is no interval development of dominant mass, architectural distortion, or grouped microcalcification typical of malignancy. There has been no change in the appearance of the mammogram from the prior studies. 3-D tomosynthesis shows no additional findings. Assessment: BI-RADS/ACR category 1 mammogram. Negative Mammogram. Recommendation Routine screening mammogram of both breasts in 1 year (for women over age 40). This patient's [facility] Lifetime Breast Cancer RIsk is estimated at 18.5 %. This mammogram was interpreted with the aid of an FDA-approved computer-aided dectection system. Electronically Signed By: Prince Osborne MD 05/10/21 [id number]
== END ==
LOC: M WHC 11:33
PROVIDERS: ATTEND Nurse Practitioner Family
DX: Z12.31 Encounter for screening mammogram for malignant neoplasm of breast (principal)

== ENCOUNTER → 2021-05-17 | Outpatient (CLI) | payer OTHER ==
--- NOTE | 2021-05-17 14:05 | REP ---
INDICATION: KARISSA LEG PVD ? REFLUX COMPARISON: None. TECHNIQUE: Ko scale and color Doppler evaluation using linear high frequency transducer including reflux evaluation. FINDINGS: Ultrasound examination of the right and left lower extremity deep venous structures from the common femoral vein through the calf/ankle to include the peroneal, and tibial veins demonstrates normal compressibility flow and wave patterns in response to respiration and augmentation. There is no evidence for deep venous thrombosis. Right lower extremity demonstrates very minimal reflux at the common femoral vein and mid greater saphenous vein which measures 2.5 mm diameter with reflux duration 3.5 seconds. Left lower extremity without evidence for reflux disease. IMPRESSION: No evidence for deep venous thrombosis. Very minimal right lower extremity reflux. <Electronically signed by Cain Babin > 05/17/21 [id number]
== END ==
LOC: M RAD 11:58
PROVIDERS: ATTEND Nurse Practitioner Family
DX: I73.9 Peripheral vascular disease, unspecified (principal)

== ENCOUNTER → 2021-06-26 | Outpatient (CLI) | payer OTHER ==
--- NOTE | 2021-06-26 17:16 | REP ---
INDICATION: PVD COMPARISON: None. TECHNIQUE: Bilateral lower extremity arterial ultrasound with Doppler FINDINGS: All numeric values represent peak systolic velocity in cm/SEC On the right: The ankle brachial index is 1.2 SUPERVISOR ELECTRON TUBE PROCESSING: 80.9 triphasic Profunda: 53.3 triphasic SFA proximal: 58.1 triphasic SFA Mid: 96.5 triphasic SFA distal: 94.2 triphasic Popliteal: 78.1 triphasic AUDRA proximal: 29.7 triphasic Tibioperoneal trunk: 43.7 triphasic METAL TUBE CUTTER proximal: 36.8 triphasic METAL TUBE CUTTER distal: 61.4 triphasic AUDRA distal: 32.6 biphasic On the left: The ankle brachial index is 1.3 SUPERVISOR ELECTRON TUBE PROCESSING: 102.7 triphasic Profunda: 81.3 triphasic SFA proximal: 56.9 triphasic SFA Mid: 106.3 triphasic SFA distal: 92.0 triphasic Popliteal: 73.4 triphasic AUDRA proximal: 35.5 triphasic Tibioperoneal trunk: 47.0 triphasic METAL TUBE CUTTER proximal: 30.4 triphasic METAL TUBE CUTTER distal: 72.8 triphasic AUDRA distal: 39.0 biphasic Small amount of plaque formation was seen bilaterally. IMPRESSION: As above <Electronically signed by Roge Staley > 06/26/21 [id number]
== END ==
LOC: M RAD 15:34
PROVIDERS: ATTEND Nurse Practitioner Family
DX: I73.9 Peripheral vascular disease, unspecified (principal)

== ENCOUNTER 2021-08-14 15:45 | Outpatient (RCR) | payer OTHER | END 2021-08-16 | LOC: M PT 15:45 | PROVIDERS: ATTEND Nurse Practitioner Family | DX: I73.9 Peripheral vascular disease, unspecified (principal) ==

== ENCOUNTER → 2021-08-14 | Outpatient (CLI) | payer OTHER ==
[2021-08-14 16:14] LABS: FREE T4 1.2 NG/DL (0.76-1.46); THYROID STIMULATING HORMONE 1.45 uIU/ML (0.358-3.740)
== END ==
LOC: M LAB 15:21
PROVIDERS: ATTEND Nurse Practitioner Family
DX: E89.0 Postprocedural hypothyroidism (principal)

== ENCOUNTER → 2021-09-07 | Outpatient (REF) | payer OTHER | LOC: M LAB REF 13:09 | PROVIDERS: ATTEND Internal Medicine Nephrology | DX: E83.42 Hypomagnesemia (principal) ==

== ENCOUNTER → 2021-09-18 | Outpatient (CLI) | payer OTHER ==
--- NOTE | 2021-09-18 14:52 | REP ---
INDICATION: CKD 3A. COMPARISON: None. TECHNIQUE: Real-time sonographic evaluation of the kidneys with Doppler FINDINGS: Multiple ultrasonographic images of the right kidney show the right kidney to measure 9.2 x 5.5 x 3.4 cm. The renal cortical echotexture is unremarkable. There are no masses. There is good corticomedullary differentiation. There is no hydronephrosis. There are no perinephric fluid collections. Multiple ultrasonographic images of the left kidney show the left kidney to measure 10 x 4.6 x 3.4 cm. The renal cortical echotexture is unremarkable. There are no masses. There is good corticomedullary differentiation. There is no hydronephrosis. There are no perinephric fluid collections. IMPRESSION: Unremarkable renal ultrasonography. <Electronically signed by Roge Staley > 09/18/21 [id number]
== END ==
LOC: M RAD 13:10
PROVIDERS: ATTEND Nurse Practitioner Family
DX: N18.31 Chronic kidney disease, stage 3a (principal)

== ENCOUNTER → 2022-02-06 | Outpatient (CLI) | payer OTHER ==
[2022-02-06 20:19] LABS: BASO # 0.1 10^3/uL (0.0-0.2); BASO % 1.3 % (0.0-1.0); EOS # 0.1 10^3/uL (0.0-0.5); EOS % 1.6 % (0.0-3.0); HEMATOCRIT 43.8 % (36.0-47.0); HEMOGLOBIN 14.3 g/dl (12.0-15.5); LYMPH # 1.6 10^3/uL (1.5-5.0); LYMPH % 22.8 % (24.0-44.0); MEAN CORPUSCULAR HEMOGLOBIN 28.1 pg (27.0-33.0); MEAN CORPUSCULAR HGB CONC 32.6 g/dl (32.0-36.5); MEAN CORPUSCULAR VOLUME 86.1 fl (80.0-96.0); MONO # 0.5 10^3/uL (0.0-0.8); MONO % 7.5 % (2.0-8.0); NEUTROPHILS # 4.7 10^3/uL (1.5-8.5); NEUTROPHILS % 66.5 % (36.0-66.0); PLATELET COUNT, AUTOMATED 247 10^3/uL (150-450); RED BLOOD COUNT 5.09 10^6/uL (4.00-5.40); WHITE BLOOD COUNT 7.1 10^3/uL (4.0-10.0)
[2022-02-06 20:29] LABS: ALBUMIN 4.1 GM/DL (3.2-5.2); ALT/SGPT 34 U/L (12-78); BILIRUBIN,TOTAL 0.4 MG/DL (0.2-1.0); BLOOD UREA NITROGEN 13 MG/DL (7-18); CALCIUM LEVEL 9.2 MG/DL (8.5-10.1); CARBON DIOXIDE LEVEL 30 MEQ/L (21-32); CHLORIDE LEVEL 104 MEQ/L (98-107); GLOMERULAR FILTRATION RATE > 60.0 (>51); GLUCOSE, FASTING 87 MG/DL (70-100); IMMUNOGLOBULIN A 94.4 MG/DL (70-400); IMMUNOGLOBULIN G 800 MG/DL (681-1648); IMMUNOGLOBULIN M 95.5 MG/DL (40-230); SODIUM LEVEL 138 MEQ/L (136-145)
== END ==
LOC: M WUC 15:56
PROVIDERS: ATTEND Internal Medicine Hematology & Oncology
DX: D47.2 Monoclonal gammopathy (principal)

== ENCOUNTER → 2022-03-19 | Outpatient (REF) | LOC: M PLAIMG 08:20 | PROVIDERS: ATTEND Internal Medicine | DX: M54.50 Low back pain, unspecified (principal) ==

== ENCOUNTER → 2022-03-21 | Outpatient (CLI) | payer OTHER ==
[2022-03-21 18:03] LABS: BASO # 0.1 10^3/uL (0.0-0.2); BASO % 1.6 % (0.0-1.0); EOS # 0.1 10^3/uL (0.0-0.5); EOS % 2.3 % (0.0-3.0); LYMPH # 1.7 10^3/uL (1.5-5.0); LYMPH % 28.5 % (24.0-44.0); MEAN CORPUSCULAR HEMOGLOBIN 28.2 pg (27.0-33.0); MEAN CORPUSCULAR HGB CONC 32.6 g/dl (32.0-36.5); MEAN CORPUSCULAR VOLUME 86.5 fl (80.0-96.0); MONO # 0.5 10^3/uL (0.0-0.8); MONO % 8.1 % (2.0-8.0); NEUTROPHILS # 3.6 10^3/uL (1.5-8.5); NEUTROPHILS % 59.2 % (36.0-66.0); PLATELET COUNT, AUTOMATED 268 10^3/uL (150-450); RED BLOOD COUNT 4.97 10^6/uL (4.00-5.40); WHITE BLOOD COUNT 6.1 10^3/uL (4.0-10.0)
[2022-03-21 18:06] LABS: ALBUMIN 3.9 GM/DL (3.2-5.2); ALT/SGPT 21 U/L (12-78); BILIRUBIN,TOTAL 0.5 MG/DL (0.2-1.0); BLOOD UREA NITROGEN 15 MG/DL (7-18); CALCIUM LEVEL 9.6 MG/DL (8.5-10.1); CARBON DIOXIDE LEVEL 27 MEQ/L (21-32); CHLORIDE LEVEL 106 MEQ/L (98-107); CHOLESTEROL LEVEL 249 MG/DL (<200); CHOLESTEROL RISK RATIO 3.458 (<5); CREATININE FOR GFR 0.84 MG/DL (0.55-1.30); GLOMERULAR FILTRATION RATE > 60.0 (>51); GLUCOSE, FASTING 85 MG/DL (70-100); HDL CHOLESTEROL 72 MG/DL (>40); LDL CHOLESTEROL 161 MG/DL (<100); MAGNESIUM LEVEL 1.9 MG/DL (1.8-2.4); NON-HDL-C 177 MG/DL; POTASSIUM SERUM 4.1 MEQ/L (3.5-5.1); SODIUM LEVEL 139 MEQ/L (136-145); TOTAL PROTEIN 6.9 GM/DL (6.4-8.2); TRIGLYCERIDES LEVEL 80 MG/DL (<150)
== END ==
LOC: M WUC 13:10
PROVIDERS: ATTEND Nurse Practitioner Family
DX: R10.9 Unspecified abdominal pain (principal); E78.2 Mixed hyperlipidemia; E03.9 Hypothyroidism, unspecified; E83.42 Hypomagnesemia

== ENCOUNTER → 2022-04-02 | Outpatient (CLI) | payer OTHER ==
[~2022-04-02] MED LIST changes: +GASTROGRAFIN SOLUTION 30ML (Q9963) As Ordered ONE
== END ==
LOC: M RAD 13:05
PROVIDERS: ATTEND Nurse Practitioner Family
DX: Z12.2 Encounter for screening for malignant neoplasm of respiratory organs (principal); R10.9 Unspecified abdominal pain; F17.218 Nicotine dependence, cigarettes, with other nicotine-induced disorders
CPT/HCPCS: 71271; 74176; Q9963

== ENCOUNTER → 2022-07-23 | Outpatient (CLI) | payer OTHER ==
[~2022-07-23] MED LIST changes: -GASTROGRAFIN SOLUTION 30ML (Q9963) As Ordered ONE; -TRIA37.53 PO; +TRIA37.577 PO
== END ==
LOC: M RAD 10:31
PROVIDERS: ATTEND Internal Medicine Critical Care Medicine
DX: R91.1 Solitary pulmonary nodule (principal)

== ENCOUNTER 2022-07-28 11:17 | Emergency (ER) | payer OTHER ==
[~2022-07-28] VITALS: Ht 165.1 cm; Wt 57.0 kg
[2022-07-28] MEDS ORDERED: FLUT1BLS5 (11:31)
[2022-07-28] MEDS ORDERED: ATOR1TAB21 (11:31)
[2022-07-28] MEDS ORDERED: FURO20TA2 PO (11:31)
[2022-07-28 12:23] LABS: BASO # 0.1 10^3/uL (0.0-0.2); BASO % 1.1 % (0.0-1.0); EOS # 0.1 10^3/uL (0.0-0.5); EOS % 1.5 % (0.0-3.0); HEMATOCRIT 43.7 % (36.0-47.0); HEMOGLOBIN 14.4 g/dl (12.0-15.5); LYMPH # 1.4 10^3/uL (1.5-5.0); LYMPH % 15.8 % (24.0-44.0); MEAN CORPUSCULAR HEMOGLOBIN 28.7 pg (27.0-33.0); MEAN CORPUSCULAR VOLUME 87.2 fl (80.0-96.0); MONO # 0.7 10^3/uL (0.0-0.8); MONO % 7.9 % (2.0-8.0); NEUTROPHILS # 6.5 10^3/uL (1.5-8.5); NEUTROPHILS % 73.5 % (36.0-66.0); PLATELET COUNT, AUTOMATED 239 10^3/uL (150-450); RED BLOOD COUNT 5.01 10^6/uL (4.00-5.40); WHITE BLOOD COUNT 8.9 10^3/uL (4.0-10.0)
[2022-07-28 12:41] LABS: ERYTHROCYTE SEDIMENTATION RATE 18 mm/hr (0-30)
[2022-07-28] MEDS ORDERED: KETOROLAC 30 MG/ML 1ML VIAL IV ONE (13:55)
[2022-07-28] MEDS ORDERED: AMPICILLIN SOD/SULBACTAM SOD 3 GM in D5W MINI-BAG PLUS 100 ML IV ONE (13:55)
[2022-07-28] MEDS ORDERED: dexameTHASONE 20MG/5ML VIAL (J1100 PER 1MG) IV ONE (13:55)
[2022-07-28] MEDS ORDERED: ISOVUE-370 76% 100ML VIAL As Ordered ONE (13:55)
[2022-07-28] MEDS ORDERED: AMOX875T2 PO (15:37)
[2022-07-28] MEDS ORDERED: PERC5TAB12 PO (15:42)
[2022-07-28 15:48] VITALS: BP 122/67
== END 2022-07-28 15:59 | disposition home or self-care (01) ==
LOC: M ED 11:17
DX: K04.7 Periapical abscess without sinus (principal); K08.89 Other specified disorders of teeth and supporting structures; M27.2 Inflammatory conditions of jaws; F41.9 Anxiety disorder, unspecified; E03.9 Hypothyroidism, unspecified; M54.50 Low back pain, unspecified; I10 Essential (primary) hypertension; F17.200 Nicotine dependence, unspecified, uncomplicated; F10.10 Alcohol abuse, uncomplicated; Z79.899 Other long term (current) drug therapy; Z79.811 Long term (current) use of aromatase inhibitors
CPT/HCPCS: 36415; 70491; 80047; 85025; 85652; 86140; 87040; 96365; 96375; 99284; J0295; J1100; J1885; Q9967

== ENCOUNTER → 2024-01-13 | Outpatient (CLI) | payer OTHER ==
[~2024-01-13] MED LIST changes: +AMOX875T2 PO; +ATOR1TAB21; +FLUT1BLS5; -K-TA10TA2 PO; +PERC5TAB12 PO; +POTA-165 PO
[2024-01-13 18:59] LABS: BASO # 0.1 10^3/uL (0.0-0.2); BASO % 1.9 % (0.0-1.0); EOS # 0.2 10^3/uL (0.0-0.5); EOS % 2.2 % (0.0-3.0); HEMATOCRIT 43.3 % (36.0-47.0); HEMOGLOBIN 14.2 g/dl (12.0-15.5); LYMPH # 1.9 10^3/uL (1.5-5.0); LYMPH % 27.7 % (24.0-44.0); MEAN CORPUSCULAR HEMOGLOBIN 28.6 pg (27.0-33.0); MEAN CORPUSCULAR HGB CONC 32.8 g/dl (32.0-36.5); MEAN CORPUSCULAR VOLUME 87.3 fl (80.0-96.0); MONO # 0.4 10^3/uL (0.0-0.8); MONO % 5.6 % (2.0-8.0); NEUTROPHILS # 4.3 10^3/uL (1.5-8.5); NEUTROPHILS % 62.3 % (36.0-66.0); PLATELET COUNT, AUTOMATED 282 10^3/uL (150-450); RED BLOOD COUNT 4.96 10^6/uL (4.00-5.40); WHITE BLOOD COUNT 6.9 10^3/uL (4.0-10.0)
[2024-01-13 19:17] LABS: ALKALINE PHOSPHATASE 63 U/L (46-116); ALT/SGPT 18 U/L (7.0-40); AST/SGOT 15 U/L (<34); BILIRUBIN,TOTAL 0.6 MG/DL (0.3-1.2); BLOOD UREA NITROGEN 10 MG/DL (9-23); CALCIUM LEVEL 9.8 MG/DL (8.5-10.1); CARBON DIOXIDE LEVEL 30 MMOL/L (20-31); CHLORIDE LEVEL 108 MMOL/L (98-107); CREATININE FOR GFR 0.77 MG/DL (0.55-1.30); GLOMERULAR FILTRATION RATE > 60.0 (>51); GLUCOSE, FASTING 66 MG/DL (60-100); MAGNESIUM LEVEL 1.9 MG/DL (1.8-2.4); POTASSIUM SERUM 3.6 MMOL/L (3.5-5.1); SODIUM LEVEL 140 MMOL/L (136-145); TOTAL PROTEIN 6.8 G/DL (5.7-8.2)
[2024-01-13 19:19] LABS: FREE T4 1.23 NG/DL (0.89-1.76); THYROID STIMULATING HORMONE 3.387 uIU/ML (0.55-4.78)
== END ==
LOC: M WUC 15:48
PROVIDERS: ATTEND Nurse Practitioner Family
DX: E03.9 Hypothyroidism, unspecified (principal); E78.5 Hyperlipidemia, unspecified; E83.42 Hypomagnesemia

== ENCOUNTER 2024-11-20 15:45 | Emergency (ER) | payer OTHER ==
[~2024-11-20] VITALS: Ht 165.1 cm; Wt 52.1 kg
[2024-11-20 16:19] LABS: BASO # 0.1 10^3/uL (0.0-0.2); BASO % 1.2 % (0.0-1.0); EOS # 0.3 10^3/uL (0.0-0.5); EOS % 3.6 % (0.0-3.0); HEMATOCRIT 42.1 % (36.0-47.0); HEMOGLOBIN 13.9 g/dl (12.0-15.5); LYMPH # 1.9 10^3/uL (1.5-5.0); LYMPH % 23.1 % (24.0-44.0); MEAN CORPUSCULAR HEMOGLOBIN 28.4 pg (27.0-33.0); MEAN CORPUSCULAR VOLUME 85.9 fl (80.0-96.0); MONO # 0.7 10^3/uL (0.0-0.8); NEUTROPHILS # 5.1 10^3/uL (1.5-8.5); NEUTROPHILS % 62.9 % (36.0-66.0); PLATELET COUNT, AUTOMATED 282 10^3/uL (150-450); WHITE BLOOD COUNT 8.1 10^3/uL (4.0-10.0)
[2024-11-20] MEDS ORDERED: ISOVUE-370 76% 100ML VIAL As Ordered ONE (16:25)
[2024-11-20] MEDS: PANTOPRAZOLE 40MG VIAL IV ONE (16:41)
[2024-11-20 16:55] LABS: LIPASE 53 U/L (12-53)
[2024-11-20 16:57] LABS: ALKALINE PHOSPHATASE 70 U/L (35-104); ALT/SGPT 21 U/L (7.0-40); AST/SGOT 21 U/L (<34); BILIRUBIN,DIRECT < 0.1 MG/DL (<0.4); BILIRUBIN,TOTAL 0.2 MG/DL (0.3-1.2); CK-MB VALUE MASS 1.2 NG/ML (<3.6); MAGNESIUM LEVEL 1.8 MG/DL (1.8-2.4)
[2024-11-20 17:00] LABS: CPK CREATINE PHOSPHOKINASE 83 U/L (34-145); MB/CK RELATIVE INDEX 1.44 (< OR =4)
[2024-11-20 18:30] VITALS: BP 115/73; TEMP 98.5; O2SAT 98
[2024-11-20] MEDS ORDERED: PROT1TAB2 PO (18:32)
== END 2024-11-20 18:52 | disposition home or self-care (01) ==
LOC: M ED 15:45
DX: R91.1 Solitary pulmonary nodule (principal); K29.00 Acute gastritis without bleeding; I45.10 Unspecified right bundle-branch block; J44.9 Chronic obstructive pulmonary disease, unspecified; E78.5 Hyperlipidemia, unspecified; N18.30 Chronic kidney disease, stage 3 unspecified; F17.200 Nicotine dependence, unspecified, uncomplicated; F10.10 Alcohol abuse, uncomplicated; Z79.02 Long term (current) use of antithrombotics/antiplatelets; Z79.899 Other long term (current) drug therapy
CPT/HCPCS: 71045; 71275; 74177; 80047; 80076; 82550; 82553; 83690; 83735; 84484; 85025; 93005; 96374; 99284; J2470; Q9967

== ENCOUNTER → 2024-12-16 | Outpatient (REF) | payer MEDICAID ==
[~2024-12-16] MED LIST changes: +PROT1TAB2 PO
[2024-12-16 14:38] LABS: BASO # 0.1 10^3/uL (0.0-0.2); BASO % 1.9 % (0.0-1.0); EOS # 0.1 10^3/uL (0.0-0.5); EOS % 1.6 % (0.0-3.0); HEMATOCRIT 40.7 % (36.0-47.0); HEMOGLOBIN 13.2 g/dl (12.0-15.5); LYMPH # 1.3 10^3/uL (1.5-5.0); LYMPH % 22.5 % (24.0-44.0); MEAN CORPUSCULAR HEMOGLOBIN 27.9 pg (27.0-33.0); MEAN CORPUSCULAR HGB CONC 32.4 g/dl (32.0-36.5); MONO # 0.4 10^3/uL (0.0-0.8); MONO % 7.6 % (2.0-8.0); NEUTROPHILS # 3.8 10^3/uL (1.5-8.5); NEUTROPHILS % 66.2 % (36.0-66.0); PLATELET COUNT, AUTOMATED 294 10^3/uL (150-450); RED BLOOD COUNT 4.73 10^6/uL (4.00-5.40); WHITE BLOOD COUNT 5.7 10^3/uL (4.0-10.0)
[2024-12-16 15:18] LABS: ALBUMIN 3.9 G/DL (3.2-5.2); ALKALINE PHOSPHATASE 64 U/L (35-104); ALT/SGPT 23 U/L (7.0-40); AST/SGOT 20 U/L (<34); BILIRUBIN,TOTAL 0.4 MG/DL (0.3-1.2); BLOOD UREA NITROGEN 12 MG/DL (9-23); CALCIUM LEVEL 9.2 MG/DL (8.3-10.6); CARBON DIOXIDE LEVEL 28 MMOL/L (20-31); CHLORIDE LEVEL 102 MMOL/L (98-107); CHOLESTEROL LEVEL 268 MG/DL (<200); CHOLESTEROL RISK RATIO 3.45 (<5); CREATININE FOR GFR 0.71 MG/DL (0.55-1.30); GLOMERULAR FILTRATION RATE > 60.0 (>45); GLUCOSE, FASTING 78 MG/DL (74-106); HDL CHOLESTEROL 77.6 MG/DL (>40); MAGNESIUM LEVEL 1.9 MG/DL (1.8-2.4); NON-HDL-C 190.4 MG/DL; POTASSIUM SERUM 4.2 MMOL/L (3.5-5.1); SODIUM LEVEL 141 MMOL/L (136-145); THYROID STIMULATING HORMONE 1.196 uIU/ML (0.55-4.78); TOTAL PROTEIN 6.9 G/DL (5.7-8.2); TRIGLYCERIDES LEVEL 112 MG/DL (<150)
[2024-12-16 15:19] LABS: FREE T4 1.66 NG/DL (0.89-1.76)
== END ==
LOC: M SFHCPLAZ 09:23
PROVIDERS: ATTEND Nurse Practitioner Family
DX: E78.2 Mixed hyperlipidemia (principal); E03.9 Hypothyroidism, unspecified; E83.42 Hypomagnesemia

== ENCOUNTER → 2025-01-10 | Outpatient (CLI) | payer MEDICAID | LOC: M PLARAD 10:32 | PROVIDERS: ATTEND Nurse Practitioner Family | DX: R91.1 Solitary pulmonary nodule (principal) | CPT/HCPCS: 78815; A9552 ==

== ENCOUNTER → 2025-02-15 | Outpatient (REF) | payer OTHER ==
[2025-02-16 17:40] LABS: BACTERIA, URINE AUTO NEGATIVE (NEGATIVE); RBC, URINE AUTO 4 /HPF (0-3); SQUAMOUS EPITHELIAL CELL UR AU 0 /HPF (0-6); WBC, URINE AUTO 9 /HPF (0-3)
== END ==
LOC: M LAB REF 16:51
PROVIDERS: ATTEND Nurse Practitioner Family
DX: R31.29 Other microscopic hematuria (principal)

== ENCOUNTER → 2025-03-22 | Outpatient (REF) | payer OTHER ==
[2025-03-22 18:41] LABS: CREATININE FOR GFR 0.78 MG/DL (0.55-1.30); GLOMERULAR FILTRATION RATE 86.9 (>45)
== END ==
LOC: M LABWUC 18:08
PROVIDERS: ATTEND Nurse Practitioner Family
DX: N18.31 Chronic kidney disease, stage 3a (principal)

== ENCOUNTER → 2025-03-23 | Outpatient (CLI) | payer OTHER ==
[~2025-03-23] MED LIST changes: +ISOVUE-370 76% 100ML VIAL As Ordered ONE
== END ==
LOC: M RAD 15:12
PROVIDERS: ATTEND Nurse Practitioner Family
DX: R31.29 Other microscopic hematuria (principal); K57.30 Diverticulosis of large intestine without perforation or abscess without bleeding
CPT/HCPCS: 74178; Q9967

== ENCOUNTER → 2025-06-07 | Outpatient (CLI) | payer OTHER ==
[~2025-06-07] MED LIST changes: -ISOVUE-370 76% 100ML VIAL As Ordered ONE
== END ==
LOC: M PLAIMG 13:47
PROVIDERS: ATTEND Surgery
DX: C7A.8 Other malignant neuroendocrine tumors (principal)

== ENCOUNTER → 2025-08-05 | Outpatient (REF) | payer MEDICAID, OTHER | LOC: EEVIPCON 10:05 → M SFHCWAGY 10:05 | PROVIDERS: ATTEND Nurse Practitioner Family | DX: T14.8XXA Other injury of unspecified body region, initial encounter (principal) ==

== ENCOUNTER → 2025-08-18 | Outpatient (CLI) | payer OTHER ==
[2025-08-18 12:16] LABS: BASO # 0.1 10^3/uL (0.0-0.2); BASO % 1.4 % (0.0-1.0); EOS # 0.1 10^3/uL (0.0-0.5); EOS % 2.6 % (0.0-3.0); LYMPH # 0.9 10^3/uL (1.5-5.0); LYMPH % 17.7 % (24.0-44.0); MONO # 0.5 10^3/uL (0.0-0.8); MONO % 10.2 % (2.0-8.0); NEUTROPHILS # 3.3 10^3/uL (1.5-8.5); NEUTROPHILS % 67.9 % (36.0-66.0); PLATELET COUNT, AUTOMATED 383 10^3/uL (150-450)
[2025-08-18 12:51] LABS: ALT/SGPT 24.0 U/L (7.0-40); AST/SGOT 23.0 U/L (<34); CALCIUM LEVEL 9.2 MG/DL (8.3-10.6); CARBON DIOXIDE LEVEL 28.0 MMOL/L (20-31); CHLORIDE LEVEL 99.0 MMOL/L (98-107); CHOLESTEROL LEVEL 249.0 MG/DL (<200); CHOLESTEROL RISK RATIO 3.35 (<5); CREATININE FOR GFR 0.77 MG/DL (0.55-1.30); GLOMERULAR FILTRATION RATE 87.7 (>45); LDL CHOLESTEROL 154.9 MG/DL (<100); MAGNESIUM LEVEL 1.9 MG/DL (1.8-2.4); NON-HDL-C 174.7 MG/DL; POTASSIUM SERUM 3.8 MMOL/L (3.5-5.1); SODIUM LEVEL 138.0 MMOL/L (136-145); TRIGLYCERIDES LEVEL 99.0 MG/DL (<150)
[2025-08-18 12:53] LABS: FREE T4 1.6 NG/DL (0.89-1.76); TOTAL 25(OH) VITAMIN D 32.8 NG/ML (20.0-100.0)
[2025-08-20 01:18] LABS: PROTEIN, TOTAL SO 7.4 g/dL (6.1-8.1)
== END ==
LOC: M WUC 09:08
PROVIDERS: ATTEND Nurse Practitioner Family
DX: D47.2 Monoclonal gammopathy (principal); E78.2 Mixed hyperlipidemia; E03.9 Hypothyroidism, unspecified; E83.42 Hypomagnesemia

== ENCOUNTER → 2025-09-12 | Outpatient (REF) | payer OTHER | LOC: M LAB REF 14:18 | PROVIDERS: ATTEND Internal Medicine | DX: R63.4 Abnormal weight loss (principal); R10.13 Epigastric pain; R19.7 Diarrhea, unspecified; D3A.090 Benign carcinoid tumor of the bronchus and lung ==